=== PATIENT | male | born 1965 | race Caucasian/White ===

== ENCOUNTER 2016-11-06 19:26 | Emergency (ER) | payer OTHER ==
[2016-11-06 19:47] VITALS: RESP 16; O2SAT 95
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
[2016-11-06 21:49] VITALS: BP 126/85; PULSE 52; TEMP 98.4
== END 2016-11-06 21:47 | disposition home or self-care (01) ==
LOC: CED 19:26
DX: S80.11XA Contusion of right lower leg, initial encounter (principal); J45.909 Unspecified asthma, uncomplicated; Z87.891 Personal history of nicotine dependence; X58.XXXA Exposure to other specified factors, initial encounter
CPT/HCPCS: 93971-PO

== ENCOUNTER → 2017-03-05 | Outpatient (CLI) | payer OTHER | LOC: CRFLAB 12:25 | PROVIDERS: ATTEND Family Medicine | DX: M25.571 Pain in right ankle and joints of right foot (principal) | CPT/HCPCS: 73610-PO ==

== ENCOUNTER → 2018-02-09 | Outpatient (CLI) | payer OTHER | LOC: CIMAGING 17:55 | PROVIDERS: ATTEND Family Medicine | DX: S99.911A Unspecified injury of right ankle, initial encounter (principal) | CPT/HCPCS: 73610-PO ==